=== PATIENT | female | born 1945 | race Caucasian/White ===

== ENCOUNTER 2024-06-11 21:42 | Emergency (ER) | payer MEDICARE ==
[~2024-06-11] VITALS: Ht 157.5 cm; Wt 65.4 kg
[2024-06-11 21:42] VITALS: BP 126/70; PULSE 78; RESP 18; TEMP 98.4; O2SAT 98
[2024-06-11 22:41] VITALS: BP 143/65; PULSE 77; RESP 16; O2SAT 93
== END 2024-06-11 23:29 | disposition home or self-care (01) ==
LOC: MED 21:42
DX: S00.83XA Contusion of other part of head, initial encounter (principal); S80.01XA Contusion of right knee, initial encounter; I10 Essential (primary) hypertension; W01.0XXA Fall on same level from slipping, tripping and stumbling without subsequent striking against object, initial encounter; Y93.89 Activity, other specified; Y92.89 Other specified places as the place of occurrence of the external cause; Y99.8 Other external cause status
CPT/HCPCS: 70450; 72125; 99284